=== PATIENT | male | born 1940 | race Caucasian/White ===

== ENCOUNTER 2020-03-24 10:39 | Emergency (ER) | payer MEDICARE, BC ==
[~2020-03-24] VITALS: Ht 175.3 cm; Wt 80.7 kg
[2020-03-24 10:44] VITALS: BP 134/70
--- NOTE | 2020-03-24 10:55 | NUR ---
SEEN AND EXAMINED BY .
[2020-03-24] MEDS ORDERED: GELATIN SPONGE,ABSORBABLE 1 SPONGE SPONGE TP ONE (11:04)
--- NOTE | 2020-03-24 11:05 | NUR ---
WOUND CLEANING AND DRESSING DONE BY INDUSTRIAL DESIGN INTERN.
== END 2020-03-24 11:11 | disposition home or self-care (01) ==
LOC: ER 10:42
DX: S61.011A Laceration without foreign body of right thumb without damage to nail, initial encounter (principal); I10 Essential (primary) hypertension; E78.5 Hyperlipidemia, unspecified; W26.8XXA Contact with other sharp object(s), not elsewhere classified, initial encounter; Y93.89 Activity, other specified; Y92.89 Other specified places as the place of occurrence of the external cause; Y99.8 Other external cause status
CPT/HCPCS: 99282; A6403